=== PATIENT | male | born 1995 | race Caucasian/White ===

== ENCOUNTER 2016-07-03 10:30 | Emergency (ER) | payer BC ==
[2016-07-03 10:36] VITALS: BP 141/79
[2016-07-03] MEDS ORDERED: LIDOCAINE VISCOUS 2% 15 ML UDC MM ONE (10:55)
[2016-07-03] MEDS ORDERED: MAG HYDROX/AL HYDROX/SIMETH 30 ML UDC ONE (10:55)
[2016-07-03] MEDS: LIDOCAINE VISCOUS 2% 15 ML UDC MM STA (10:58)
[2016-07-03] MEDS: MAG HYDROX/AL HYDROX/SIMETH 30 ML UDC PO STA (10:58)
--- NOTE | 2016-07-03 11:21 | ED Physician Documentation ---
PD HPI ABD PAIN - Stated complaint Stated Complaint: ABDOMINAL PAIN - Chief complaint Chief Complaint: Abd Pain - History obtained from History obtained from: Patient, Family - History of Present Illness Timing - onset: How many days ago (2) Timing - duration: Days (2) Timing - details: Gradual onset, Still present Quality: Sharp, Pain Location: Epigastric Worsened by: Eating Associated symptoms: Nausea. No: Fever, Vomiting Similar symptoms before: Has not had sx before Recently seen: Not recently seen - Additional information Additional information: 21 y/o male with onset of symptoms about 2 days ago with epigastric burning pain and this pain has persisted and is worse with eating. He states that he does not take ibuprofen or aleve or aspirn. He did eat some microwaved food but did not think this was too hot. He has not had this previously and he denies alcohol intake. Review of Systems Constitutional: denies: Fever Eyes: denies: Decreased vision Ears: denies: Ear pain Nose: denies: Congestion Throat: denies: Sore throat Cardiac: denies: Chest pain / pressure, Palpitations Respiratory: denies: Dyspnea, Cough GI: reports: Abdominal Pain, Nausea. denies: Vomiting, Constipation, Diarrhea : denies: Dysuria PD PAST MEDICAL HISTORY - Past Medical History Past Medical History: No - Past Surgical History Past Surgical History: No - Present Medications Home Medications: Ambulatory Orders Medication Instructions Recorded Confirmed Sucralfate 1 gm PO ACHS #30 tablet 07/03/16 - Allergies Allergies/Adverse Reactions: Allergies Allergy/AdvReac Type Severity Reaction Status Date / Time No Known Drug Allergies Allergy Verified 07/03/16 10:34 - Social History Does the pt smoke?: No Smoking Status: Never smoker Does the pt drink ETOH?: No Does the pt have substance abuse?: No - Immunizations Immunizations are current?: Yes PD ED PE NORMAL - Vitals Vital signs reviewed: Yes (hypertensive) - General General: Alert and oriented X 3, No acute distress, Well developed/nourished - HEENT HEENT: Atraumatic, PERRL, EOMI, Ears normal - Neck Neck: Supple, no meningeal sign, No bony TTP - Cardiac Cardiac: RRR, No murmur - Respiratory Respiratory: No respiratory distress, Clear bilaterally - Abdomen Abdomen: Soft, Non tender - Back Back: No CVA TTP, No spinal TTP - Derm Derm: Normal color, Warm and dry, No rash - Extremities Extremities: No deformity, No edema - Neuro Neuro: No motor deficit, No sensory deficit - Psych Psych: Normal mood, Normal affect Results - Vitals Vitals: Vital Signs - 24 hr 07/03/16 10:34 Temperature 37.5 C Heart Rate 78 Respiratory 16 Rate Blood Pressure 141/79 H O2 Saturation 99 Oxygen O2 Source Room air PD MEDICAL DECISION MAKING - ED course Complexity details: considered differential, d/w patient, d/w family ED course: 21 y/o male with epigastric pain is given viscous lido and [place] and this did reduce his level of pain. He has mild pain now. Departure - Departure Disposition: Home, Self Care Clinical Impression: Gastritis Qualifiers: Gastritis type: unspecified gastritis Chronicity: acute Gastritis bleeding: without bleeding Qualified Code(s): K29.00 - Acute gastritis without bleeding Condition: Stable Instructions: ED Gastritis Follow-Up: Your, doctor [Other] Prescriptions: Sucralfate 1 gm PO ACHS #30 tablet Comments: Today it appears your stomach pain is a result of some irritation to the lining of the stomach and the medications should help heal this up in a short while. Take a medication to reduce the acid in your stomach like pepcid or zantac ( over the counter)
== END 2016-07-03 11:30 | disposition home or self-care (01) ==
LOC: ED 10:30
DX: K29.00 Acute gastritis without bleeding (principal)
CPT/HCPCS: 99283